=== PATIENT | female | born 1965 | race African-American/Black ===

== ENCOUNTER 2024-03-13 18:56 | Emergency (ER) | payer SELFPAY ==
[~2024-03-13] VITALS: Ht 165.1 cm; Wt 65.0 kg
[2024-03-13 19:01] VITALS: O2SAT 98
[2024-03-13] MEDS: DIPHENHYDRAMINE 50MG/ML VIAL IM ONE (19:51)
[2024-03-13] MEDS: HALOPERIDOL LACTATE 5MG/ML VIAL IM ONE (19:51)
[2024-03-13] MEDS ORDERED: LORAZEPAM 2MG/ML INJ IM ONE (20:15)
[2024-03-13 23:31] VITALS: BP 158/97; PULSE 100; RESP 18; TEMP 36.89184; O2SAT 100
== END 2024-03-13 23:33 | disposition home or self-care (01) ==
LOC: EDBD 18:56 → ER 18:56
DX: G92.9 Unspecified toxic encephalopathy (principal); R45.1 Restlessness and agitation; R41.0 Disorientation, unspecified
CPT/HCPCS: 96372; 99291; J1200; J1630; Z7610 ×2